=== PATIENT | female | born 1950 | race Caucasian/White ===

== ENCOUNTER 2025-05-28 12:53 | Outpatient (CLI) | payer MEDICARE | END 2025-05-28 12:54 | disposition home or self-care (01) | LOC: SCSMRI 12:53 | PROVIDERS: ATTEND Orthopaedic Surgery | DX: S66.812A Strain of other specified muscles, fascia and tendons at wrist and hand level, left hand, initial encounter (principal); S63.611A Unspecified sprain of left index finger, initial encounter; M18.12 Unilateral primary osteoarthritis of first carpometacarpal joint, left hand ==